=== PATIENT | male | born 1965 | race Caucasian/White ===

== ENCOUNTER 2024-10-05 08:39 | Inpatient (IN) | payer BC ==
--- OUTSIDE RECORDS SUMMARY | 2024-10-05 08:43 | XMS REPORT | Continuity of Care Document ---
Author Name Unknown Address [address] [facility] [address] [place] [address] Organization [facility] [place] Address [address] [facility] [address] [place] [address] Care Team Providers Care Grinder Tender Name Role Phone Pcp, Patient Does Not Have A Primary Care Physic meli DEWAYNE Attending Clinician Unavailable Katey Mujica Attending Clinician [phone] KATEY KHALIL Attending Clinician Unavailable Doctor Unassigned, [place] Attending Clinician U navailable Provider, [facility] Attending Clinician Un available Raissa Villa Attending Clinician [phone] RAISSA BESS Attending Clinician Unavail able DEWAYNE Admitting Clinician Unavailable Payers Payer Name Policy Type Policy Number Effective Date Expirati on Date Source [place] [id number] 2006 00:00:00 Problems Condition Name Condition Details Condition Category Status Onset Date Resolution Date Last Treatment Date Treating Clinician Comments Source Acute sinusitis Acute Sinusitis Problem Active 2023-03 00:00: 00 [facility] Allergic rhinitis Allergic Rhinitis Problem Active 2023-03 00:00: 00 [facility] Tobacco user Tobacco User Problem Active 10-10 00:00: 00 [facility] Ulcer Ulcer Problem Active 10-10 00:00: 00 [facility] No known active problems No known active problems Disease [facility] Allergies, Adverse Reactions, Alerts Allergy Name Allergy Type Status Severity Reaction(s) Onset Date Inactive Date Treating Clinician Comments Source NO KNOWN ALLERGIE S Drug Class Active [facility] Social History Social Habit Start Date Stop Date Quantity Comments Source History of tobacco use Chews Tobacco [facility] Exposure to SARS-CoV-2 (event) 2021-09-28 00:00:00 2021-10-08 09:11:00 Not sure [facility] Tobacco use and exposure 2020-05-06 00:00:00 2020-05-06 00:00:00 User of smokeless tobacco [facility] Sex Ass[birth year] At 1965 00:00:00 1965 00:00:00 [facility] Smoking Status Start Date Stop Date Source Unknown if ever smoked [facility] Heavy Tobacco Smoker [facility] Ex-smoker 2020-05-06 00:00:00 2020-05-06 00:00:00 U [facility] Medications Ordered Medication Name Filled Medication Name Start Date Stop Date Current Medication? Ordering Clinician Indication Dosage Frequency Signature (SIG) Comments Components Source dexAMETHaso ne (DECADRON) tablet 12 mg 06-11 15:00: 00 06-11 14:04 :00 No [id number] 12mg [facility] predniSONE 20 mg tablet 06-11 00:00: 00 Yes [id number] 2 tabs now and 2 tabs early each morning for total of 5 doses. [facility] hydrOXYzine 25 mg tablet 06-11 00:00: 00 Yes [id number] 1-2 tabs Every 3-6hr as needed for itch or rash, at least 3 times a day. [facility] famotidine 40 mg tablet 06-11 00:00: 00 09-10 04:59 :00 No [id number] 40mg Take 1 tablet by mouth daily for 90 days. [facility] triamcinolo ne acetonide (KENALOG) injection 80 mg 2- 03:15: 00 05-07 02:07 :00 No [id number] 80mg [facility] predniSONE 20 mg tablet 05-06 00:00: 00 05-12 05:59 :00 No [id number] 60mg Take 3 tablets by mouth daily for 5 days. [facility] amoxicillin 875 mg-potassiu m clavulanate 125 mg tablet Take 1 tablet every 12 hours by oral route for 7 days. amoxicillin 875 mg-potassiu m clavulanate 125 mg tablet Take 1 tablet every 12 hours by oral route for 7 days. No 1 Q12H amoxicilli n 875 mg-potassi um clavulanat e 125 mg tablet Take 1 tablet every 12 hours by oral route for 7 days. [facility] Flonase Allergy Relief 50 mcg/actuati on nasal spray,suspe nsion [place] 1 spray every day by intranasal route. Flonase Allergy Relief 50 mcg/actuati on nasal spray,suspe nsion [place] 1 spray every day by intranasal route. No 1spray( s) Q1D Flonase Allergy Relief 50 mcg/actuat ion nasal spray,susp ension [place] 1 spray every day by intranasal route. [facility] Vital Signs Vital Name Observation Time Observation Value Comments S ource BP Systolic 2024-03-06 00:00:00 138 mm[Hg] [facility] BP Diastolic 2024-03-06 00:00:00 105 mm[Hg] [facility] Body Weight 2024-03-06 00:00:00 3762 [oz_av] [facility] Height 2023-01-18 00:00:00 68.5 [in_i] [facility] Body Weight 2023-01-18 00:00:00 3459.2 [oz_av] [facility] BP Diastolic 2023-01-18 00:00:00 94 mm[Hg] [facility] BP Systolic 2023-01-18 00:00:00 135 mm[Hg] [facility] BMI (Body Mass Index) 2023-01-18 00:00:00 32.4 kg/m2 [facility] Systolic blood pressure 2021-10-08 14:13:00 149 mm[Hg] [facility] Diastolic blood pressure 2021-10-08 14:13:00 91 mm[Hg] [facility] Heart rate 2021-10-08 14:13:00 78 /min [facility] Body temperature 2021-10-08 14:13:00 36.72 Carla [facility] Respiratory rate 2021-10-08 14:13:00 14 /min [facility] Body height 2021-10-08 14:13:00 172.7 cm [facility] Body weight 2021-10-08 14:13:00 100.336 kg [facility] BMI 2021-10-08 14:13:00 33.63 kg/m2 [facility] Oxygen saturation in Arterial blood by Pulse oximetry 2021-10-08 14:13:00 98 /min [facility] Systolic blood pressure 2020-06-11 13:12:00 129 mm[Hg] [facility] Diastolic blood pressure 2020-06-11 13:12:00 86 mm[Hg] [facility] Heart rate 2020-06-11 13:12:00 64 /min [facility] Body temperature 2020-06-11 13:12:00 36.78 Carla [facility] Respiratory rate 2020-06-11 13:12:00 18 /min [facility] Body height 2020-06-11 13:12:00 172.7 [facility] weight 2020-06-11 13:12:00 79.379 kg [facility] BMI 2020-06-11 13:12:00 26.61 kg/m2 [facility] Oxygen saturation in Arterial blood by Pulse oximetry 2020-06-11 13:12:00 99 /min [facility] Body temperature 2020-05-07 01:47:00 37.17 Carla [facility] Respiratory rate 2020-05-07 01:47:00 18 /min [facility] Body height 2020-05-07 01:47:00 172.7 cm [facility] Body weight 2020-05-07 01:47:00 86.183 kg [facility] BMI 2020-05-07 01:47:00 28.89 kg/m2 [facility] Oxygen saturation in Arterial blood by Pulse oximetry 2020-05-07 01:47:00 98 /min [facility] Systolic blood pressure 2020-05-07 01:47:00 125 mm[Hg] [facility] Diastolic blood pressure 2020-05-07 01:47:00 75 mm[Hg] [facility] Heart rate 2020-05-07 01:47:00 70 /min [facility] Procedures Procedure Date / Time Performed Performing Clinicia n Source ASSIGNMENT OF BENEFITS 2021-10-08 14:02:19 Docto r Unassigned, [place] Knee Surgery 2015-03-11 00:00:00 [facility] Knee Surgery 2011-03-11 00:00:00 [facility] Encounters Start Date/Time End Date/Time Encounter Type Admission Type Attending Clinicians Care Facility Care Department Encounter ID Source 2024-03-06 00:00:00 2024-03-06 00:00:00 Betsy Pascal APRN-FORESTRY FACULTY MEMBER-B C: [address] [place] [address] , Ph. [facility] [id number] [address] [facility] 2023-01-18 00:00:00 2023-01-18 00:00:00 Brittnee Ram APRN, MSN, FORESTRY FACULTY MEMBER-: [address], [address], [place] [address] , Ph. [facility] [id number] [facility] 2021-10-08 09:00:00 2021-10-08 09:20:00 Urgent Care [facility] [id number] [facility] 2021-10-08 09:00:00 2021-10-08 09:00:00 Outpatient R REMI KATEY [facility] [id number] [facility] 2021-10-08 00:00:00 2021-10-08 00:00:00 Orders Only Doctor Unassigned, [facility] .114 [id number] [facility] 2020-06-11 08:07:58 2020-06-11 09:06:23 [facility] .114 [id number] [facility] 2020-06-11 08:00:00 2020-06-11 08:00:00 Outpatient R REMI KATEY [facility] [id number] [facility] 2020-05-06 19:43:40 2020-05-06 20:03:40 Urgent Care Provider, [facility] .114 [id number] [facility] 2020-05-06 19:40:00 2020-05-06 19:40:00 Outpatient R BESS [facility] [id number] [facility] 2020-05-06 00:00:00 2020-05-06 00:00:00 Letter (Out) Doctor Unassigned, [facility] 1.114 [id number] [facility]
[2024-10-05 09:39] LABS: Absolute Lymphocytes (CBC) 2.0 K/uL (0.7-4.9); Hematocrit 41.2 % (39.6-49.0); Hemoglobin 13.9 g/dL (13.6-17.9); MCH 29.7 pg (27.0-35.0); MCHC 33.7 g/dL (32.0-36.0); MCV 88.2 fL (80-100); MPV 8.4 fL (7.6-11.3); Nucleated RBC Absolute Count 0.0 (0-0); Nucleated Red Blood Cells % 0.0 % (0-0); RBC Red Blood Cell Count 4.67 M/uL (4.33-5.43); White Blood Count 15.70 thou/uL (4.3-10.9)
[2024-10-05 09:48] LABS: Sqamous Epithelial None Seen /HPF (None Seen); Urine Culture Reflex Order NOT NEEDED; Urine Microscopic Reflex YN ORDER UMIC
[2024-10-05 10:00] LABS: ALT/SGPT 26.0 U/L (16-61); AST/SGOT 14.0 U/L (15-37); Albumin 3.4 g/dL (3.4-5.0); Albumin/Globulin Ratio 0.8 (1.1-1.8); Alkaline Phosphatase 92.0 U/L (45-117); Anion Gap 8.6 mEq/L (5.0-15.0); BUN Blood Urea Nitrogen 10.0 mg/dL (7-18); Globulin 4.5 g/dL (2.3-3.5); Glucose Level 97.0 mg/dL (74-106); Lipase 23.0 U/L (13-75); Potassium 3.6 mEq/L (3.5-5.1)
[2024-10-05] MEDS ORDERED: KETOROLAC 30 MG/ML INJ ONE (10:33)
[2024-10-05] MEDS ORDERED: NA CHLORIDE 0.9% 1,000 ML ONE (10:33)
--- NOTE | 2024-10-05 11:04 | RAD REPORT ---
EXAMINATION: CT Abdomen Pelvis W Contrast CLINICAL INDICATION: Male, 59 years old. LLQ Pain;Abd pain TECHNIQUE: CT abdomen and pelvis was performed, after the administration of IV contrast, as [facility] protocol. Axial, sagittal and coronal reconstructions were obtained. One or more of the following dose reduction techniques were used: Automated exposure control, adjustment of the mA and k V according to patient size, and iterative reconstruction. Unless otherwise specified, incidental findings do not require dedicated imaging follow-up. COMPARISON: No prior exam. FINDINGS: LOWER CHEST: The visualized lung bases are clear. LIVER: Normal in size and contour. No focal lesion. BILIARY SYSTEM: No suspicious abnormalities. SPLEEN: Normal size. No focal lesion. PANCREAS: No mass, ductal dilation, or atilio-pancreatic fluid. ADRENALS: Normal; no mass. KIDNEYS: Normal size and contour. No hydronephrosis. 1 cm exophytic left upper pole simple appearing cyst. URINARY BLADDER: Suboptimally distended limiting evaluation. GASTROINTESTINAL TRACT: Pronounced inflammatory changes surrounding the superiorly directed proximal sigmoid diverticulum. Few locules of free air tracking superiorly. Trace fluid along the left paracolic gutter and pelvis. No bowel obstruction or abscess. Fatty infiltration throughout the prox imal gastric wall from the level of the fundus to the antrum, suggesting sequelae of chronic or repeated inflammatory changes. APPENDIX: Appendix not visualized, but no inflammatory changes in region of appendix. LYMPH NODES: No lymphadenopathy. MUSCULOSKELETAL: No acute or suspicious osseous abnormality. ADDITIONAL FINDINGS: None. IMPRESSION: Findings perforated proximal sigmoid diverticulitis with small volume of free air tracking superiorly . Trace fluid along the left paracolic gutter and pelvis. Other incidental findings as above. THIS REPORT CONTAINS FINDINGS THAT MAY BE CRITICAL TO PATIENT CARE. The findings were verbally commun icated via telephone to Cruzito Rascon on 10/05/2024 10:59 AM.
--- NOTE | 2024-10-05 11:09 | EDPHYS ---
Physician Documentation [facility] Name: Davis Cramer Age: 59 yrs Sex: Male : 1965 Arrival Date: 10/05/2024 Time: 08:39 Bed 20 Private MD: ED Physician Cruzito Rascon HPI: 10/05 09:15 This 59 yrs old Male presents to ER via Ambulatory with complaints of Abdominal Pain. sp3 09:15 59-year-old male with history of hypertension presents to the ED with chief complaint sp3 left lower quadrant abdominal pain for the last [address] Rodriguez has had multiple polyps removed. He states he is also been recently more constipated than normal. He denies any other symptoms including vomiting, diarrhea, nausea, epigastric pain, back pain, flank pain, dysuria, rash, groin pain, chest pain, shortness of breath, fever, known sick contacts, travel history, or any other signs or symptoms on ROS at this time.. Historical: - Allergies: 09:04 No Known Allergies; ss - PMHx: 09:04 Hypertensive disorder; ss - PSHx: 09:04 bilateral knee repair; ss - Immunization history:: Adult Immunizations unknown. - Infectious Disease History:: Denies. - Social history:: Smoking status: Patient denies any tobacco usage or history of. ROS: 09:20 Constitutional: Negative for fever, chills, and weight loss, Eyes: Negative for injury, sp3 pain, redness, and discharge, Neck: Negative for injury, pain, and swelling, Cardiovascular: Negative for chest pain, palpitations, and edema, Respiratory: Negative for shortness of breath, cough, wheezing, and pleuritic chest pain, Back: Negative for injury and pain, MS/Extremity: Negative for injury and deformity, Skin: Negative for injury, rash, and discoloration, Neuro: Negative for headache, weakness, numbness, tingling, and seizure, Psych: Negative for depression, anxiety, suicide ideation, homicidal ideation, and hallucinations, Allergy/Immunology: Negative for hives, rash, and allergies, Endocrine: Negative for neck swelling, polydipsia, polyuria, polyphagia, and marked weight changes, 09:20 All other systems are negative, Exam: 09:21 Constitutional: This is a well developed, well nourished patient who is awake, alert, sp3 and in no acute distress. Head/Face: Normocephalic, atraumatic. Neck: Trachea midline, no thyromegaly or masses palpated, and no cervical lymphadenopathy. Supple, full range of motion without nuchal rigidity, or vertebral point tenderness. No Meningismus. Chest/axilla: Normal chest wall appearance and motion. Nontender with no deformity. No lesions are appreciated. Cardiovascular: Regular rate and rhythm with a normal S1 and S2. No gallops, murmurs, or rubs. Normal PMI, no JVD. No pulse deficits. Respiratory: Lungs have equal breath sounds bilaterally, clear to auscultation and percussion. No rales, rhonchi or wheezes noted. No increased work of breathing, no retractions or nasal flaring. Back: No spinal tenderness. No costovertebral tenderness. Full range of motion. Skin: Warm, dry with normal turgor. Normal color with no rashes, no lesions, and no evidence of cellulitis. MS/ Extremity: Pulses equal, no cyanosis. Neurovascular intact. Full, normal range of motion. Neuro: Awake and alert, GCS 15, oriented to person, place, time, and situation. Cranial nerves II-XII grossly intact. Motor strength 5/5 in all extremities. Sensory grossly intact. Cerebellar exam normal. Normal gait. Psych: Awake, alert, with orientation to person, place and time. Behavior, mood, and affect are within normal limits. 09:21 Abdomen/GI: Left lower quadrant abdominal pain to palpation without peritoneal signs, rebound or guarding., Vital Signs: 09:02 BP 153 / 108; Pulse 87; Resp 16; Temp 99(O); Pulse Ox 99% on R/A; Weight 107.95 kg; ss Height 5 ft. 8 in. ; Pain 4/10; 10:42 BP 160 / 104; Pulse 89; Resp 18; Pulse Ox 98% on R/A; ph 11:45 BP 159 / 97; Pulse 84; Resp 19; Pulse Ox 98% on R/A; ph 12:48 BP 158 / 89; Pulse 81; Resp 18; Temp 98.7; Pulse Ox 99% ; ph 09:02 Body Mass Index 36.19 (107.95 kg, 172.72 cm) 09:02 Pain Scale: Adult ss MDM: 08:42 Medical Screening Exam initiated kb 09:21 Data reviewed: vital signs, nurses notes, lab test result(s), radiologic studies. ED sp3 course: 59-year-old male with left lower quadrant abdominal pain. Differential diagnosis includes diverticulitis, constipation, other colitis, UTI/pyelonephritis spectrum, ureterolithiasis/kidney stone spectrum, functional abdominal pain, musculoskeletal pain, among others. Workup will include CT scan of the abdomen pelvis with IV contrast, general labs and supportive care. Patient declined any pain medications at this time. Final disposition pending workup and patient course.. 11:07 ED course: CT demonstrates diverticulitis with perforation. 16,000 WBC count. Zosyn sp3 started. I discussed the case with Dr. Raya who will be seeing in consultation patient will be admitted to the hospitalist.. 10/05 09:04 Order name: CBC with Diff; Complete Time: 10:03 sp3 10/05 09:04 Order name: CMP; Complete Time: 10:03 sp3 10/05 09:04 Order name: Lipase; Complete Time: 10:03 sp3 10/05 09:04 Order name: UA Rfx Greg Cult if indicated; Complete Time: 10:03 sp3 10/05 12:25 Order name: Magnesium [facility] 10/05 12:25 Order name: Phosphorus [facility] 10/05 12:25 Order name: Protime (+INR) [facility] 10/05 12:25 Order name: Troponin High Sensitivity [facility] 10/05 12:25 Order name: Basic Metabolic Panel [facility] 10/05 12:25 Order name: Basic Metabolic Panel [facility] 10/05 12:25 Order name: CBC with Automated Diff [facility] 10/05 12:25 Order name: CBC with Automated Diff [facility] 10/05 12:25 Order name: Lipid Profile [facility] 10/05 12:25 Order name: Lipid Profile [facility] 10/05 12:27 Order name: Hemoglobin A1c [facility] 10/05 09:04 Order name: CT Abd/Pelvis - IV Contrast Only; Complete Time: 11:06 sp3 10/05 12:23 Order name: CONS Physician Consult [facility] 10/05 09:04 Order name: IV Saline Lock; Complete Time: 09:37 sp3 10/05 09:04 Order name: Labs collected and sent; Complete Time: 09:37 sp3 Administered Medications: 10:00 Drug: NS 0.9% IV 1000 ml IV at 1 bolus Per protocol; to be given as a bolus over 60 ph minutes Route: IV; Rate: 1 bolus; Site: left antecubital; 11:23 Follow up: Response: No adverse reaction; IV Status: Completed infusion; IV Intake: ph 1000ml 10:40 Drug: Ketorolac IVP 30 mg IVP once Route: IVP; Site: left antecubital; ph 11:22 Follow up: Response: No adverse reaction ph 11:21 Drug: Piperacillin-Tazobactam IVPB 3.375 grams IVPB once over 60 mins; (mix in NS 100 ph mL) Route: IVPB; Infused Over: 60 mins; Site: left antecubital; 11:50 Follow up: Response: No adverse reaction; IV Status: Completed infusion ph Disposition Summary: 10/05/24 11:08 Hospitalization Ordered Notes: Hospitalization Status: Inpatient Admission sp3 Provider: Christopher Pittman sp3 [facility]: [facility] ([facility]patient[facility] sp3 Condition: Stable sp3 Problem: new sp3 Symptoms: have worsened sp3 Bed/Room Type: Standard sp3 Room Assignment: 424(10/05/24 12:43) bc6 Diagnosis - Diverticulitis with perforation, abdominal pain sp3 Forms: - Medication Reconciliation Form sp3 - SBAR form sp3 - Leadership Thank You Letter sp3 Signatures: Dispatcher [employer] Marcy Carrasco FNP-C FNP-Liane Cortes RN RN Priscilla Rodriguez RN RN Cruzito Rascon MD MD sp3 Raquel Davis bc6 Corrections: (The following items were deleted from the chart) 12:43 11:08 sp3 bc6
--- NOTE | 2024-10-05 11:09 | ER ---
Nurse's Notes [facility] Name: Davis Cramer Age: 59 yrs Sex: Male : 1965 Arrival Date: 10/05/2024 Time: 08:39 Bed 20 Private MD: Diagnosis: Diverticulitis with perforation, abdominal pain Presentation: 10/05 09:02 Chief complaint: Patient states: L lower abd pain that worsens throughout the day x 4 ss days. Pt also reports urinary frequency. Coronavirus screen: Client denies travel out of the [place] in the last 14 days. Ebola Screen: Patient denies exposure to infectious person. Patient denies travel to an Ebola-affected area in the 21 days before illness onset. Initial Sepsis Screen: Does the patient meet any 2 criteria? No. Patient's initial sepsis screen is negative. Does the patient have a suspected source of infection? No. Patient's initial sepsis screen is negative. Risk Assessment: Do you want to hurt yourself or someone else? Patient reports no desire to harm self or others. 09:02 Method Of Arrival: Ambulatory ss 09:02 Acuity: SOLOMON 3 09:02 Onset of symptoms was October 01, 2024. ss Historical: - Allergies: 09:04 No Known Allergies; ss - PMHx: 09:04 Hypertensive disorder; ss - PSHx: 09:04 bilateral knee repair; ss - Immunization history:: Adult Immunizations unknown. - Infectious Disease History:: Denies. - Social history:: Smoking status: Patient denies any tobacco usage or history of. Screenin:36 [facility] ED Fall Risk Assessment (Adult) History of falling in the last 3 months, ph including since admission No falls in past 3 months (0 pts) Confusion or Disorientation No (0 pts) Intoxicated or Sedated No (0 pts) Impaired Gait No (0 pts) Mobility Assist Device Used No (0 pt) Altered Elimination No (0 pt) Score/Fall Risk Level 0 - 2 = Low Risk Oriented to surroundings, Maintained a safe environment, Hourly rounding (assess needs \T\ fall precautionary measures) done. Abuse screen: Denies threats or abuse. Denies injuries from another. Nutritional screening: No deficits noted. Tuberculosis screening: No symptoms or risk factors identified. Assessment: 09:35 General: Appears in no apparent distress. comfortable, well groomed, Behavior is calm, ph cooperative, appropriate for age. Pain: Complains of pain in left upper quadrant, right lower quadrant and left lower quadrant. Neuro: Level of Consciousness is awake, alert, obeys commands, Oriented to person, place, time, situation. Cardiovascular: Capillary refill < 3 seconds in bilateral fingers Patient's skin is warm and dry. Respiratory: Airway is patent Respiratory effort is even, unlabored. GI: Abdomen is round Bowel sounds present X 4 quads. Abd is soft X 4 quads. Derm: Skin is pink, warm \T\ dry. Vital Signs: 09:02 BP 153 / 108; Pulse 87; Resp 16; Temp 99(O); Pulse Ox 99% on R/A; Weight 107.95 kg; ss Height 5 ft. 8 in. ; Pain 4/10; 10:42 BP 160 / 104; Pulse 89; Resp 18; Pulse Ox 98% on R/A; ph 11:45 BP 159 / 97; Pulse 84; Resp 19; Pulse Ox 98% on R/A; ph 12:48 BP 158 / 89; Pulse 81; Resp 18; Temp 98.7; Pulse Ox 99% ; ph 09:02 Body Mass Index 36.19 (107.95 kg, 172.72 cm) ss 09:02 Pain Scale: Adult ss ED Course: 08:41 Patient arrived in ED. mr 08:42 RomeMarcy, PHOEBE[facility]it[facility] kb 08:42 Cruzito Rascon MD is Attending Physician. kb 08:53 Priscilla Rodriguez, RN is Primary Nurse. ph 09:03 Triage completed. ss 09:04 Arm band placed on right wrist. ss 09:35 Initial lab(s) drawn, by ia, sent to lab. Urine collected: clean catch specimen, clear. ph Inserted saline lock: 22 gauge in right antecubital area, using aseptic technique. Blood collected. Flushed with 10 mL NS. 09:36 Patient has correct armband on for positive identification. Bed in low position. Call ph light in reach. Side rails up X 1. Pulse ox on. NIBP on. Door closed. Noise minimized. 09:36 Provided Education on: POC and est time for test results. ph 09:37 CBC with Diff Sent. ph 09:37 CMP Sent. ph 09:37 Lipase Sent. ph 10:25 CT Abd/Pelvis - IV Contrast Only In Process Unspecified. EDMS 11:07 Christopher Pittman MD is Hospitalizing Provider. sp3 13:23 No provider procedures requiring assistance completed. Patient admitted, IV remains in ph place. Administered Medications: 10:00 Drug: NS 0.9% IV 1000 ml IV at 1 bolus Per protocol; to be given as a bolus over 60 ph minutes Route: IV; Rate: 1 bolus; Site: left antecubital; 11:23 Follow up: Response: No adverse reaction; IV Status: Completed infusion; IV Intake: ph 1000ml 10:40 Drug: Ketorolac IVP 30 mg IVP once Route: IVP; Site: left antecubital; ph 11:22 Follow up: Response: No adverse reaction ph 11:21 Drug: Piperacillin-Tazobactam IVPB 3.375 grams IVPB once over 60 mins; (mix in NS 100 ph mL) Route: IVPB; Infused Over: 60 mins; Site: left antecubital; 11:50 Follow up: Response: No adverse reaction; IV Status: Completed infusion ph Medication: 09:36 VIS not applicable for this client. ph Intake: 11:23 IV: 1000ml; Total: 1000ml. ph Outcome: 11:08 Decision to Hospitalize by Provider. sp3 13:23 Admitted to Med/surg accompanied by tech, via wheelchair, with chart, ph 13:23 Condition: stable 13:24 Patient left the ED. ph Signatures: Dispatcher [employer] EDOK Marcy Peter, FINANCIAL UNDERWRITER-C FINANCIAL UNDERWRITER-Ckb Karma Baker, Reg Reg mr Liane Recinos RN RN Priscilla Rodriguez RN RN Cruzito Rascon MD MD sp3 Corrections: (The following items were deleted from the chart) 10:42 10:41 NS 0.9% IV 1000 ml IV at 1 bolus in left antecubital ph ph
[2024-10-05] MEDS ORDERED: PIPERACIL/TAZO 3.375 GM VIAL IV ONE (11:11)
[2024-10-05] MEDS ORDERED: NA CHLORIDE 0.9% 100 ML ONE (11:11)
[2024-10-05] MEDS ORDERED: ACETAMINOPHEN 650MG/RECT SUPP PR PRN (12:17)
[2024-10-05] MEDS ORDERED: ONDANSETRON 4 MG/2 ML VIAL IV PRN (12:21)
--- NOTE | 2024-10-05 12:27 | P.HP ---
Certification for Inpatient Patient admitted to: Inpatient With expected LOS: >2 Midnights Patient will require the following post-hospital care: None Practitioner: I am a practitioner with admitting privileges, knowledge of patient current condition, hospital course, and medical plan of care. Services: Services provided to patient in accordance with Admission requirements found in Title 42 Section 412.3 of the Code of Federal Regulations <Bismark Garcia - Last Filed: 10/05/24 17:27> Patient History Date of Service: 10/05/24 Reason for admission: Abdominal pain. History of Present Illness: Patient is a 59-year-old male with a past medical history significant for hypertension, tobacco use, HLD who presents with complaint of abdominal pain located in the left lower quadrant that has been ongoing for the past 3 days. Patient rated pain as 4/10 in severity and described pain as sharp in quality. Patient reported associated signs and symptoms of fever and chills. Patient denies any other signs and symptoms. Symptoms are aggravated or relieved by nothing. Patient decided to present to the hospital due to worsening symptoms. - Past Medical/Surgical History Diabetic: No -: high choesterol many years ago. not taking anythng -: recurring sinsus problems -: HTN -: Left knee artho 2011 - Family History Family History: Reviewed- Non-Contributory - Social History Counseled patient to stop smoking for: more than 10 minutes Smoking therapy provided: No Alcohol use: Yes CD- Drugs: No Caffeine use: Yes <JaycoboswaldFernando travisalejandra Travis - Last Filed: 10/05/24 17:27> Date of Service: 10/05/24 <Christopher Pittman - Last Filed: 10/05/24 22:28> Allergies No Known Allergies Allergy (Unverified 11/25/13 13:45) Home Medications: NK [No Home Meds] 11/25/13 Review of Systems General: Fever, Chills Eyes: Unremarkable ENT: Unremarkable Respiratory: Unremarkable Cardiovascular: Unremarkable Gastrointestinal: Abdominal Pain Genitourinary: Unremarkable Musculoskeletal: Unremarkable Integumentary: Unremarkable Neurological: Unremarkable Lymphatics: Unremarkable <CharitypalmaFernandoalejandra Travis - Last Filed: 10/05/24 17:27> Physical Examination - Physical Exam General: Alert, In no apparent distress, Oriented x3, Cooperative HEENT: Atraumatic, PERRLA, Mucous membr. moist/pink, EOMI, Sclerae nonicteric Neck: Supple, 2+ carotid pulse no bruit, No LAD, Without JVD or thyroid abnormality Respiratory: Clear to auscultation bilaterally, Normal air movement Cardiovascular: No edema, Regular rate/rhythm, Normal S1 S2 Capillary refill: <2 Seconds Gastrointestinal: Normal bowel sounds, Tenderness Musculoskeletal: No clubbing, No swelling, No contractures, No tenderness Integumentary: No rashes, No breakdown, No erythema, No warmth Neurological: Normal gait, Normal speech, Normal strength at 5/5 x4 extr, Normal tone, Normal affect Lymphatics: No axilla or inguinal lymphadenopathy - Studies Laboratory Data (last 24 hrs) 10/05/24 10/05/24 09:30 09:30 WBC 15.70 H Hgb 13.9 Hct 41.2 Plt Count 309 Sodium 135 L Potassium 3.6 BUN 10 Creatinine 1.00 Glucose 97 Total Bilirubin 0.9 AST 14 L ALT 26 Alkaline Phosphatase 92 Lipase 23 <Bismark Garcia - Last Filed: 10/05/24 17:27> - Studies Laboratory Data (last 24 hrs) 10/05/24 10/05/24 09:30 09:30 WBC 15.70 H Hgb 13.9 Hct 41.2 Plt Count 309 Sodium 135 L Potassium 3.6 BUN 10 Creatinine 1.00 Glucose 97 Total Bilirubin 0.9 AST 14 L ALT 26 Alkaline Phosphatase 92 Lipase 23 <Christopher Pittman - Last Filed: 10/05/24 22:28> Assessment and Plan - Plan Diverticulitis. --CT abdomen indicates findings of perforated proximal sigmoid diverticulitis with small volume of free air tracking superiorly and Trace fluid along the left paracolic gutter and pelvis. --Patient placed on antibiotics. --Patient placed on n.p.o. and IV hydration. --Surgeon consulted. Recommendations appreciated --Surgery indicated no surgery at this time. Leukocytosis --Blood cultures pending. --Continue antibiotics. Acute pain. --Continue current pain medication regimen. Hypertension --Poorly controlled. --Continue home medication --Hydralazine as needed for SBP greater than 160 mmHg. Tobacco use --Patient uses snuff -- Patient counseled on tobacco cessation. CKD 2. --Stable. --Will continue to monitor renal functions. Hyperlipidemia. --Not on home medication. --Further management per patient's PCP outpatient. DVT prophylaxis with Lovenox subQ Discharge Plan: Home Plan to discharge in: 48 Hours - Advance Directives Does patient have a Living Will: No Does patient have a Durable POA for Healthcare: No - Code Status/Comfort Care Code Status Assessed: Yes Physician Review: Patient Assessed, Agree with Above Assessment and Plan Critical Care: No <Bismark Garcia - Last Filed: 10/05/24 17:27> Physician Review: Patient Assessed, Agree with Above Assessment and Plan <Christopher Pittman - Last Filed: 10/05/24 22:28>
[2024-10-05] MEDS: NA CHLORIDE 0.9% 1,000 ML IV SCH (14:42)
[2024-10-05] MEDS: METRONIDAZOLE 500mg IVPB 500 MG/100 ML BAG IV SCH (16:30)
[2024-10-05] MEDS: ENOXAPARIN 40 MG/0.4 ML SQ SCH (18:00)
[2024-10-05] MEDS: MORPHINE 4 MG/ML SYR IV PRN (19:18)
[2024-10-05] MEDS: CIPROFLOXACIN 400mg IV 400 MG/200 ML BAG IV SCH (19:55)
--- NOTE | 2024-10-05 20:16 | CON ---
Date of Consultation: 10/05/2024 Reason For Consultation: Abdominal pain. History Of Present Illness: The patient is a 59-year-old gentleman who comes in with decreasing left lower and suprapubic abdominal pain associated with nausea for the last 4 days. He denies any nause a, vomiting, diarrhea, constipation, blood per rectum, dysuria or hematuria. The patient denies any sore throat, runny nose, cough, headaches, dizziness, chest pain, fever or chills. The patient has h ad similar episodes in the past. The patient has had multiple colonoscopies done in the past which h e had polyps, but no history of cancer. Review of Systems: Otherwise unremarkable. Past Medical History: Hypertension. Past Surgical History: Bilateral knee surgeries. Allergies: NO ALLERGIES. Social History: The patient chews tobacco. Does not smoke and drinks very occasionally. Family History: Noncontributory. Physical Examination: Vital Signs: Stable. He is afebrile. Blood pressure is slightly on the high side. General: He is awake, alert, and oriented x3. Head and Neck: Throat clear. Neck is supple. No JVD. No neck masses. Chest: Clear. Heart: S1, S2. Abdomen: Soft, nondistended. Positive bowel sounds. Tenderness with rebound minimal in the left lo wer and suprapubic region. No rigidity. No guarding. The remainder of the abdomen is benign. Extremities: Adequately perfused, nontender. Neuro: Nonfocal. Laboratory Data: Significant for white count of 15.7 with a left shift. INR is pending. Chemistry reviewed, essentially unremarkable. His CT of the abdomen and pelvis reviewed with the radiologist lucas nd it shows perforated proximal sigmoid diverticulitis with small volume of free air slightly superio rly, but no trace fluid along the left pericolic gutter pelvis. No abscess and no distant free air n oted. Assessment: A 59-year-old gentleman with acute perforated sigmoid diverticulitis appears to be conta ined on the left lower quadrant. Recommendations: At this time would be n.p.o., IV fluid, IV antibiotics, pain management. Should th e patient symptoms worsen and condition worsened then he may need an intervention on this admission. However, should he improve with antibiotics and n.p.o. status, we can slowly advance his diet and di scharge the patient on oral antibiotics and then follow up with his colorectal/GI doctor for colonosc opy in 4-6 weeks followed by evaluation for possible segmental colon resection by colorectal speciali st. Plan of care was discussed in detail with the patient. TRACY/CONTRERAS Voice ID: [id number] Report ID: [id number]
[2024-10-05] MEDS: DIPHENHYDRAMINE 50 MG/ML VIAL IV ONE (21:06)
[2024-10-05] MEDS: HYDRALAZINE HCL 20 MG/ML VIAL IV PRN (21:06)
[2024-10-06] MEDS: IBUPROFEN 600 MG TAB PO ONE (04:27)
[2024-10-06 06:31] LABS: PT Prothrombin Time 15.5 SECONDS (10-13.0); Protime INR 1.38
[2024-10-06 06:34] LABS: Absolute Lymphocytes (CBC) 1.0 K/uL (0.7-4.9); Hematocrit 39.5 % (39.6-49.0); Hemoglobin 13.5 g/dL (13.6-17.9); MCH 29.9 pg (27.0-35.0); MCHC 34.1 g/dL (32.0-36.0); MCV 87.6 fL (80-100); MPV 8.1 fL (7.6-11.3); Nucleated RBC Absolute Count 0.1 (0-0); Nucleated Red Blood Cells % 0.9 % (0-0); RBC Red Blood Cell Count 4.51 M/uL (4.33-5.43); White Blood Count 12.00 thou/uL (4.3-10.9)
[2024-10-06 06:37] LABS: Magnesium 2.1 mg/dL (1.6-2.4); Troponin High Sensitivity 4.2 pg/mL (<58.9)
[2024-10-06 06:43] LABS: Anion Gap 6.7 mEq/L (5.0-15.0); BUN Blood Urea Nitrogen 11.0 mg/dL (7-18); Glucose Level 109.0 mg/dL (74-106); HDL Cholesterol 46.0 mg/dL (40-60); LDL Cholesterol, Calculated 123.0 mg/dL (<130); LDL Cholesterol,Calc NonReport 123.0; Potassium 3.7 mEq/L (3.5-5.1)
[2024-10-06 07:31] LABS: Blood Morphology Comment NOT SEEN (NOT SEEN); White Blood Cell Scan OK (OK)
[2024-10-06] MEDS: KCL 20 MEQ/100 mL IVPB 20 MEQ/100 ML BAG IV SCH (09:47)
--- NOTE | 2024-10-06 12:11 | PN ---
Date of Progress Note: 10/06/2024 Subjective: The patient is awake, alert, feels better. Pain is less. He is thirsty. His vitals ar e stable. Blood pressure is slightly high. He is afebrile. His laboratory data reviewed. His whit e count is down to 12,000, still has a left shift. Chemistry reviewed. His abdomen is tender, but t here is no rebound, rigidity, or guarding. It is better than yesterday. Assessment: Acute sigmoid diverticulitis with microperforation likely. Recommendations: We will get a dietary consult for diet modification. We will start the patient on sips of clear liquids. Continue IV antibiotics. Detailed discussion was had with the patient and wi fe regarding postdischarge plan as far as getting a colonoscopy and evaluation by colorectal surgeon in [place]. /MODL Voice ID: [id number] Report ID: [id number]
[2024-10-06 15:38] VITALS: BMI 35.7
[2024-10-06] MEDS: PIPER TAZO 3.375 GM in NA CHLORIDE 0.9% 100 ML IV SCH (16:45)
--- NOTE | 2024-10-06 16:48 | P.PN ---
Date of Service: 10/06/24 Subjective: Doing well. Blood pressure remains high. States he has had high blood pressure in the past but has never seen a doctor for it. Sitting in his chair drinking his coffee. No fevers or chills. Abdominal pain is 3 out of 10. No fevers overnight. He remains in high spirits Review of Systems General: Unremarkable Eyes: Unremarkable ENT: Unremarkable Respiratory: Unremarkable Cardiovascular: Unremarkable Gastrointestinal: Abdominal Pain Genitourinary: Unremarkable Musculoskeletal: Unremarkable Integumentary: Unremarkable Neurological: Unremarkable Lymphatics: Unremarkable Physical Examination - Physical Exam General: Alert, In no apparent distress, Oriented x3, Cooperative HEENT: Atraumatic, PERRLA, Mucous membr. moist/pink, EOMI, Sclerae nonicteric Neck: Supple, 2+ carotid pulse no bruit, No LAD, Without JVD or thyroid abnormality Respiratory: Clear to auscultation bilaterally, Normal air movement Cardiovascular: No edema, Regular rate/rhythm, Normal S1 S2 Capillary refill: <2 Seconds Gastrointestinal: Normal bowel sounds, Tenderness Musculoskeletal: No clubbing, No swelling, No contractures, No tenderness Integumentary: No rashes, No breakdown, No erythema, No warmth Neurological: Normal gait, Normal speech, Normal strength at 5/5 x4 extr, Normal tone, Normal affect Lymphatics: No axilla or inguinal lymphadenopathy - Studies Laboratory Data (last 24 hrs) 10/05/24 10/05/24 09:30 09:30 WBC 15.70 H Hgb 13.9 Hct 41.2 Plt Count 309 Sodium 135 L Potassium 3.6 BUN 10 Creatinine 1.00 Glucose 97 Total Bilirubin 0.9 AST 14 L ALT 26 Alkaline Phosphatase 92 Lipase 23 - Studies Laboratory Data (last 24 hrs) 10/05/24 10/05/24 09:30 09:30 WBC 15.70 H Hgb 13.9 Hct 41.2 Plt Count 309 Sodium 135 L Potassium 3.6 BUN 10 Creatinine 1.00 Glucose 97 Total Bilirubin 0.9 AST 14 L ALT 26 Alkaline Phosphatase 92 Lipase 23 Assessment and Plan - Plan Acute sigmoid diverticulitis with microperforation --WBC down to 12 --Continue Zosyn --Patient placed on n.p.o. and IV hydration. --Surgeon consulted. Recommendations appreciated Leukocytosis --Blood cultures pending. --Continue antibiotics. Acute pain. --Continue current pain medication regimen. Hypertension --Started on losartan --Hydralazine as needed for SBP greater than 160 mmHg. Tobacco use --Patient uses snuff -- Patient counseled on tobacco cessation. CKD 2. --Stable. --Will continue to monitor renal functions. Hyperlipidemia. --Not on home medication. --Further management per patient's PCP outpatient. DVT prophylaxis with Lovenox subQ Discharge Plan: Home Plan to discharge in: 48 Hours - Advance Directives Does patient have a Living Will: No Does patient have a Durable POA for Healthcare: No
[2024-10-06] MEDS: LOSARTAN POTASSIUM 50 MG TABLET PO SCH (17:19)
[2024-10-06] MEDS: IBUPROFEN 400 MG TAB PO ONE (20:13)
[2024-10-07 07:05] LABS: Absolute Lymphocytes (CBC) 1.6 K/uL (0.7-4.9); Hematocrit 41.0 % (39.6-49.0); Hemoglobin 13.8 g/dL (13.6-17.9); MCH 29.7 pg (27.0-35.0); MCHC 33.7 g/dL (32.0-36.0); MCV 88.1 fL (80-100); MPV 8.5 fL (7.6-11.3); Nucleated RBC Absolute Count 0.0 (0-0); Nucleated Red Blood Cells % 0.0 % (0-0); RBC Red Blood Cell Count 4.66 M/uL (4.33-5.43); White Blood Count 10.40 thou/uL (4.3-10.9)
[2024-10-07 08:00] LABS: Anion Gap 8.9 mEq/L (5.0-15.0); BUN Blood Urea Nitrogen 9.0 mg/dL (7-18); Glucose Level 97.0 mg/dL (74-106); Potassium 3.9 mEq/L (3.5-5.1)
--- NOTE | 2024-10-07 16:39 | P.PN ---
Date of Service: 10/07/24 Subjective: Tolerating his diet. Denies abdominal pain, fevers, chills. Anxious to go home. Review of Systems General: Unremarkable Eyes: Unremarkable ENT: Unremarkable Respiratory: Unremarkable Cardiovascular: Unremarkable Gastrointestinal: Abdominal Pain Genitourinary: Unremarkable Musculoskeletal: Unremarkable Integumentary: Unremarkable Neurological: Unremarkable Lymphatics: Unremarkable Physical Examination - Physical Exam General: Alert, In no apparent distress, Oriented x3, Cooperative HEENT: Atraumatic, PERRLA, Mucous membr. moist/pink, EOMI, Sclerae nonicteric Neck: Supple, 2+ carotid pulse no bruit, No LAD, Without JVD or thyroid abnormality Respiratory: Clear to auscultation bilaterally, Normal air movement Cardiovascular: No edema, Regular rate/rhythm, Normal S1 S2 Capillary refill: <2 Seconds Gastrointestinal: Normal bowel sounds, Tenderness Musculoskeletal: No clubbing, No swelling, No contractures, No tenderness Integumentary: No rashes, No breakdown, No erythema, No warmth Neurological: Normal gait, Normal speech, Normal strength at 5/5 x4 extr, Normal tone, Normal affect Lymphatics: No axilla or inguinal lymphadenopathy - Studies Laboratory Data (last 24 hrs) 10/05/24 10/05/24 09:30 09:30 WBC 15.70 H Hgb 13.9 Hct 41.2 Plt Count 309 Sodium 135 L Potassium 3.6 BUN 10 Creatinine 1.00 Glucose 97 Total Bilirubin 0.9 AST 14 L ALT 26 Alkaline Phosphatase 92 Lipase 23 - Studies Laboratory Data (last 24 hrs) 10/05/24 10/05/24 09:30 09:30 WBC 15.70 H Hgb 13.9 Hct 41.2 Plt Count 309 Sodium 135 L Potassium 3.6 BUN 10 Creatinine 1.00 Glucose 97 Total Bilirubin 0.9 AST 14 L ALT 26 Alkaline Phosphatase 92 Lipase 23 Assessment and Plan - Plan Acute sigmoid diverticulitis with microperforation Leukocytosis --Continue Zosyn --Patient placed on n.p.o. and IV hydration. --Surgeon consulted. Recommendations appreciated --Leukocytosis resolved --Continue IV antibiotics and hopefully transition to oral for discharge Acute pain. --Continue current pain medication regimen. Hypertensive urgency --Improved on losartan --Hydralazine as needed for SBP greater than 160 mmHg. Tobacco use --Patient uses snuff -- Patient counseled on tobacco cessation. CKD 2. --Stable. --Will continue to monitor renal functions. Hyperlipidemia. --Not on home medication. --Further management per patient's PCP outpatient. DVT prophylaxis with Lovenox subQ Discharge Plan: Home Plan to discharge in: 48 Hours - Advance Directives Does patient have a Living Will: No Does patient have a Durable POA for Healthcare: No
--- NOTE | 2024-10-07 16:52 | PN ---
Date of Progress Note: 10/07/2024 Subjective: The patient is awake, alert. No abdominal pain. His blood pressure has been a little h igh and the hospice team is trying to manage that. His laboratory data reviewed. White count is nor mal now and he still has a slight left shift. Objective: Vital Signs: His vitals are stable. He is afebrile. Abdomen: Soft, nondistended, very minimal tenderness. No rebound, rigidity, or guarding. Assessment: Acute sigmoid perforated diverticulitis. Recommendations: Advance diet to full liquids and GI soft in the a.m. The patient does well and blo od pressure is under control. The patient can be discharged home on oral antibiotics for 2 weeks fol lowed by GI evaluation for colonoscopy and colorectal referral. /IWONAL Voice ID: [id number] Report ID: [id number]
[2024-10-08 09:01] LABS: Absolute Lymphocytes (CBC) 1.7 K/uL (0.7-4.9); Hematocrit 39.8 % (39.6-49.0); Hemoglobin 13.4 g/dL (13.6-17.9); MCH 29.6 pg (27.0-35.0); MCHC 33.6 g/dL (32.0-36.0); MCV 88.1 fL (80-100); MPV 8.6 fL (7.6-11.3); Nucleated RBC Absolute Count 0.0 (0-0); Nucleated Red Blood Cells % 0.0 % (0-0); RBC Red Blood Cell Count 4.52 M/uL (4.33-5.43); White Blood Count 11.80 thou/uL (4.3-10.9)
[2024-10-08 09:08] LABS: ALT/SGPT 28.0 U/L (16-61); AST/SGOT 17.0 U/L (15-37); Albumin 3.2 g/dL (3.4-5.0); Albumin/Globulin Ratio 0.8 (1.1-1.8); Alkaline Phosphatase 77.0 U/L (45-117); Anion Gap 8.7 mEq/L (5.0-15.0); BUN Blood Urea Nitrogen 10.0 mg/dL (7-18); Globulin 3.9 g/dL (2.3-3.5); Glucose Level 83.0 mg/dL (74-106); Potassium 3.7 mEq/L (3.5-5.1)
--- NOTE | 2024-10-08 10:18 | PN ---
Date of Progress Note: 10/08/2024 Subjective: The patient is awake, alert, tolerating diet. No pain. No nausea, no vomiting, no feve r, no chills. Objective: Vital Signs: Stable. He is afebrile. Abdomen: Soft, nondistended, nontender. Positive bowel sounds. Laboratory Data: Shows slight decrease in his white count to 11.8 with slight left shift. Assessment: Acute sigmoid diverticulitis with perforation. Recommendation: As the white count went up a little bit, I think it would be prudent for us to repea t the CT of the abdomen and pelvis and make sure that the intraperitoneal disease has not progressed prior to sending the patient home. If that CT is negative, then the patient can be discharged home gloria Soto and Jenelle with followup with GI and Colorectal Surgery. Plan of care discussed with the [facility] briannat Team. /MODL Voice ID: [id number] Report ID: [id number]
--- NOTE | 2024-10-08 11:39 | RAD REPORT ---
EXAMINATION: CT ABDOMEN AND PELVIS WITH CONTRAST CLINICAL INDICATION: Abdominal pain TECHNIQUE: CT abdomen and pelvis was performed, after the administration of 100 cc Isovue-300.. Sagit sapna and coronal reconstructions were obtained. One or more of the following dose reduction techniques were used: Automated exposure control, adjustment of the mA and kV according to patient si ze, and iterative reconstruction. Unless otherwise specified, incidental findings do not require dedicated imaging follow-up. [id number]. Oral contrast was not given which limits evaluation of bowel and appendix. COMPARISON: .2014 and September 27, 2024 FINDINGS: Mild increase in the degree of stranding adjacent to the sigmoid colon. The amount of extraluminal ai r adjacent to the sigmoid colon has increased. Largest collection of air 1.7 cm. A fluid-filled abscess however is not noted. Small amount of fluid within the left posterior pararenal space.: 1.3 cm low-density lesion left kidney has increased in size from 2015. Hounsfield unit 21. It has a h igh likelihood of being benign. Follow-up renal ultrasound in one year No other significant change since prior CT. IMPRESSION: Perforated sigmoid diverticulitis mildly worsened since prior exam. No drainable abscess seen. Follow -up CT recommended for reevaluation
--- NOTE | 2024-10-08 15:28 | P.PN ---
Date of Service: 10/08/24 Subjective: Sitting at bedside eating breakfast this morning. We reviewed his blood work that showed an elevated WBC count. Repeat CT scan. He is hopeful to go home Review of Systems General: Unremarkable Eyes: Unremarkable ENT: Unremarkable Respiratory: Unremarkable Cardiovascular: Unremarkable Gastrointestinal: Abdominal Pain Genitourinary: Unremarkable Musculoskeletal: Unremarkable Integumentary: Unremarkable Neurological: Unremarkable Lymphatics: Unremarkable Physical Examination - Physical Exam General: Alert, In no apparent distress, Oriented x3, Cooperative HEENT: Atraumatic, PERRLA, Mucous membr. moist/pink, EOMI, Sclerae nonicteric Neck: Supple, 2+ carotid pulse no bruit, No LAD, Without JVD or thyroid abnormality Respiratory: Clear to auscultation bilaterally, Normal air movement Cardiovascular: No edema, Regular rate/rhythm, Normal S1 S2 Capillary refill: <2 Seconds Gastrointestinal: Normal bowel sounds, Tenderness Musculoskeletal: No clubbing, No swelling, No contractures, No tenderness Integumentary: No rashes, No breakdown, No erythema, No warmth Neurological: Normal gait, Normal speech, Normal strength at 5/5 x4 extr, Normal tone, Normal affect Lymphatics: No axilla or inguinal lymphadenopathy - Studies Laboratory Data (last 24 hrs) 10/05/24 10/05/24 09:30 09:30 WBC 15.70 H Hgb 13.9 Hct 41.2 Plt Count 309 Sodium 135 L Potassium 3.6 BUN 10 Creatinine 1.00 Glucose 97 Total Bilirubin 0.9 AST 14 L ALT 26 Alkaline Phosphatase 92 Lipase 23 - Studies Laboratory Data (last 24 hrs) 10/05/24 10/05/24 09:30 09:30 WBC 15.70 H Hgb 13.9 Hct 41.2 Plt Count 309 Sodium 135 L Potassium 3.6 BUN 10 Creatinine 1.00 Glucose 97 Total Bilirubin 0.9 AST 14 L ALT 26 Alkaline Phosphatase 92 Lipase 23 Assessment and Plan - Plan Acute sigmoid diverticulitis with microperforation Leukocytosis 10/08 -Leukocytosis trending up today. -Repeat CT scan showing perforated sigmoid diverticulitis mildly worsened since prior exam no drainable abscess seen. --Continue Zosyn for 1 more day and discharged with Cipro and Flagyl in the morning --Continue full liquid diet --Follow-up with colorectal surgeon immediately after discharge --Discharge early in the a.m. with CT scan on CD as well as paperwork from his visit Acute pain. --Continue current pain medication regimen. Hypertensive urgency --Improved on losartan --Continue losartan upon discharge --Hydralazine as needed for SBP greater than 160 mmHg. Tobacco use --Patient uses snuff -- Patient counseled on tobacco cessation. CKD 2. --Stable. --Will continue to monitor renal functions. Hyperlipidemia. --Not on home medication. --Further management per patient's PCP outpatient. DVT prophylaxis with Lovenox subQ Discharge Plan: Home Plan to discharge in: 48 Hours - Advance Directives Does patient have a Living Will: No Does patient have a Durable POA for Healthcare: No
--- NOTE | 2024-10-08 20:37 | PN ---
Date of Progress Note: 10/08/2024 Addendum: The patient was doing well this morning. However, when we got his blood work back, his wh ite count went up to 11.8 with a decrease in the left shift. At this point, I requested a repeat CT of the abdomen and pelvis, which was done and it shows perforated sigmoid diverticulitis with mildly worsened since prior exam. No drainable abscess seen and follow up CT is recommended. The largest c ollection there is 1.7 cm, fluid-filled abscess is not noted. There is small amount of fluid within the left posterior pararenal space. After reviewing this CAT scan and reexamining the patient, all o ptions were discussed with the patient. The patient has a colorectal surgeon who is a close family f yudith in [place] and as this patient may require some intervention it should be perhaps done by a col orectal surgeon and the patient wants to be discharged in the morning, so he can directly go over to see that colorectal surgeon in [place] and then that surgeon will have access to all of our clinical information for the patient and to make a decision what needs to be done next as far as admitting the patient to continue medical management or intervening if necessary. The patient appears to be a marilin y responsible. The patient with a clear plan what needs to be done and what the risk of all of his d isease are and what next steps should be taken. Therefore, I am in agreement that we can discharge t his patient in the morning. We will go ahead and give a prescription for Cipro and Flagyl to be take n once he is out of the hospital. He will meet with his colorectal surgeons and then it will be dete rmined whether patient will be readmitted for continued IV antibiotic therapy and medical management or whether the patient needs a surgical interventions and I discussed this in detail with the hospita list team as well. Therefore, the patient will be discharged tomorrow morning early with all the cli nical data available to him. We will repeat his CBC in the morning, so the surgeon in [place] can guzman ve access to that. The patient does not want to be transferred to another hospital directly rather go by private vehicle to the doctor's office. This patient is clinically stable for travel by car. /MODL Voice ID: [id number] Report ID: [id number]
[2024-10-09 07:16] LABS: Absolute Lymphocytes (CBC) 1.8 K/uL (0.7-4.9); Hematocrit 37.8 % (39.6-49.0); Hemoglobin 12.7 g/dL (13.6-17.9); MCH 29.7 pg (27.0-35.0); MCHC 33.7 g/dL (32.0-36.0); MCV 88.2 fL (80-100); MPV 8.2 fL (7.6-11.3); Nucleated RBC Absolute Count 0.0 (0-0); Nucleated Red Blood Cells % 0.0 % (0-0); RBC Red Blood Cell Count 4.29 M/uL (4.33-5.43); White Blood Count 10.50 thou/uL (4.3-10.9)
[2024-10-09 07:39] LABS: ALT/SGPT 35.0 U/L (16-61); AST/SGOT 20.0 U/L (15-37); Albumin 3.0 g/dL (3.4-5.0); Albumin/Globulin Ratio 0.8 (1.1-1.8); Alkaline Phosphatase 71.0 U/L (45-117); Anion Gap 7.9 mEq/L (5.0-15.0); BUN Blood Urea Nitrogen 9.0 mg/dL (7-18); Globulin 3.9 g/dL (2.3-3.5); Glucose Level 93.0 mg/dL (74-106); Potassium 3.9 mEq/L (3.5-5.1)
[2024-10-09] MEDS: POTASSIUM CL SA 10 MEQ TAB PO ONE (08:17)
--- NOTE | 2024-10-09 11:17 | PN ---
Date of Progress Note: 10/09/2024 Subjective: The patient is awake, alert. No complaint. He is tolerating clear liquids. Objective: Vital Signs: Stable. He is afebrile. Abdomen: Soft, nondistended, nontender. Positive bowel sounds. Laboratory Data: Reviewed. White count is 10.5 and left shift has improved slightly. I reviewed the CT with the radiologist. He feels that we should repeat the CT tomorrow, but with ora l contrast only starting tonight, so allowing you to go through the area of the diverticulitis to ksenia e sure that has sealed. Assessment: Acute sigmoid diverticulitis with microperforation. Recommendations: Continue IV antibiotics. Repeat CT and blood work and depending upon what the CT s hows tomorrow and his blood work, we will advance his diet slowly. Please note that I did speak to Phuc Richomnd, a colorectal surgeon in [place], yesterday and he agrees with the plan that we are performin g. Initially, the patient wanted to be transferred, but as he is still in the medical management pha se, we will keep the patient here and when he is ready for intervention either during this stay or as an outpatient, he will go back to Dr. Richmond. TRACY/CONTRERAS Voice ID: [id number] Report ID: [id number]
--- NOTE | 2024-10-09 13:33 | P.PN ---
Subjective Date of Service: 10/09/24 Chief Complaint: Abdominal pain. Subjective: Improving (Patient is improving. WBC trending down. No appreciable left lower quadrant tenderness on deep palpation.) Physical Examination - Vital Signs Temperature: 97.8 F Blood Pressure: 150/95 Pulse: 88 Respirations: 16 Pulse Ox (%): 99 - Physical Exam General: In no apparent distress, Cooperative, Obese HEENT: Atraumatic, Normocephalic Respiratory: Clear to auscultation bilaterally, Normal air movement Cardiovascular: No edema, Normal pulses, Regular rate/rhythm, Normal S1 S2 Gastrointestinal: Soft and benign, Non-distended Neurological: Normal speech Assessment And Plan - Plan Assessment Patient is a 59-year-old male who was admitted after he presented with left lower quadrant abdominal pain. He has been found to have perforated diverticulitis. Repeat CT abdomen pelvis revealed worsening findings. Patient has since responded to medical therapy. Acute sigmoid diverticulitis with microperforation Leukocytosis Leukocytosis resolved Is currently on full liquid diet and tolerating well Plan is to advance diet as tolerated Repeat CBC tomorrow to ensure no worsening Continue Zosyn while inpatient with the plan to discharge with Cipro and Flagyl Acute pain. Patient's pain is controlled He is ambulating without assistance Hypertensive urgency Blood pressure stable on losartan Tobacco use --Patient uses snuff -- Patient counseled on tobacco cessation. CKD 2. Avoid nephrotoxins. Hyperlipidemia. Outpatient follow-up with PCP DVT prophylaxis with Lovenox subQ Discharge Plan: Home Plan to discharge in: 24 Hours Physician Review: Patient Assessed, Agree with Above Assessment and Plan
[2024-10-10 07:41] LABS: Absolute Lymphocytes (CBC) 2.1 K/uL (0.7-4.9); Hematocrit 37.9 % (39.6-49.0); Hemoglobin 13.0 g/dL (13.6-17.9); MCH 29.9 pg (27.0-35.0); MCHC 34.2 g/dL (32.0-36.0); MCV 87.6 fL (80-100); MPV 8.4 fL (7.6-11.3); Nucleated RBC Absolute Count 0.0 (0-0); Nucleated Red Blood Cells % 0.0 % (0-0); RBC Red Blood Cell Count 4.33 M/uL (4.33-5.43); White Blood Count 10.50 thou/uL (4.3-10.9)
[2024-10-10 07:55] LABS: Anion Gap 10.0 mEq/L (5.0-15.0); BUN Blood Urea Nitrogen 7.0 mg/dL (7-18); Glucose Level 89.0 mg/dL (74-106); Magnesium 2.5 mg/dL (1.6-2.4); Potassium 4.0 mEq/L (3.5-5.1)
--- NOTE | 2024-10-10 09:04 | RAD REPORT ---
EXAMINATION: CT ABDOMEN AND PELVIS WITHOUT CONTRAST CLINICAL INDICATION: Acute sigmoid diverticulitis TECHNIQUE: CT abdomen and pelvis was performed, without IV contrast, as per department protocol. Axia l, sagittal and coronal reconstructions were obtained. One or more of the following dose reduction techniques were used: Automated exposure control, adjustment of the mA and kV according to the patien t size, and iterative reconstruction. Unless otherwise specified, incidental findings do not require dedicated imaging follow-up. COMPARISON: 10/08/2024 FINDINGS: The lack of intravenous contrast limits the sensitivity of this exam for evaluation of solid visceral organs, vascular structures, and retroperitoneum. LOWER CHEST: The visualized lung bases are clear. LIVER:Normal in size and contour. No focal lesion. Grossly unremarkable gallbladder. SPLEEN: Normal size. No focal lesion. PANCREAS: No mass, ductal dilation, or atilio-pancreatic fluid. ADRENALS: Normal; no mass. KIDNEYS AND URETERS: Normal size and contour. No hydronephrosis. URINARY BLADDER: Normal contour. GASTROINTESTINAL TRACT: Left lower quadrant sigmoid peridiverticular inflammation is mildly improved. No Gastrografin contrast seen external to the lumen of colon. There are a few small extraluminal air locules in the region as well as phlegmonous collection measuring up to 3.8 cm, mildly improved i n size since prior study. APPENDIX: Normal appendix. LYMPH NODES: No lymphadenopathy. MUSCULOSKELETAL: No acute or suspicious osseous abnormality. IMPRESSION: Mild improvement in left lower quadrant acute sigmoid diverticulitis and adjacent phlegmon since prio r study. No Gastrografin contrast leakage outside the colon seen. The findings were communicated with Franck Raya MD at 10/10/2024 9:02 AM by telephone.
[2024-10-10] MEDS: NIFEDIPINE XL 30 MG TABLET PO SCH (09:53)
--- NOTE | 2024-10-10 11:11 | P.PN ---
Subjective Date of Service: 10/10/24 Chief Complaint: Abdominal pain. Subjective: Improving (Patient is improving. He is ambulating and walking down the [place] without distress. Started on nifedipine today for slightly high blood pressure) Physical Examination - Vital Signs Temperature: 97.7 F Blood Pressure: 145/97 Pulse: 84 Respirations: 16 Pulse Ox (%): 100 - Physical Exam General: Alert, In no apparent distress, Cooperative HEENT: Atraumatic, Normocephalic Respiratory: Other (Speaking in full sentences) Cardiovascular: No edema Neurological: Normal speech Assessment And Plan - Plan Assessment Patient is a 59-year-old male who was admitted after he presented with left lower quadrant abdominal pain. He has been found to have perforated diverticulitis. Repeat CT abdomen pelvis revealed worsening findings. Patient has since responded to medical therapy. Acute sigmoid diverticulitis with microperforation Leukocytosis Leukocytosis resolved Currently on full liquid diet Will advance to soft low fiber diet tomorrow morning Plan is to discharge tomorrow on a 2-week course of Cipro and Flagyl. Continue Zosyn while in-house Acute pain. Patient's pain is controlled He is ambulating without assistance Hypertensive urgency Blood pressure high while on losartan Will add nifedipine as well Tobacco use Patient has been counseled CKD 2. Avoid nephrotoxins. Hyperlipidemia. Outpatient follow-up with PCP DVT prophylaxis with Lovenox subQ Discharge Plan: Home Plan to discharge in: 24 Hours Physician Review: Patient Assessed, Agree with Above Assessment and Plan
--- NOTE | 2024-10-10 13:48 | PN ---
Date of Progress Note: 10/10/2024 Subjective: Patient is awake, alert. No complaints. Vitals stable, afebrile. His blood pressure i s much better than it was when he came in, but is still slightly elevated and his medication may need to be adjusted. I did speak to the hospitalist about that. His laboratory data shows white count o f 10.5, and there is no left shift. His CT of the abdomen and pelvis reviewed with the radiologist. There is no evidence of contrast leaking from the perforation site and the inflammation has improved . His abdomen is soft, nondistended, nontender. Positive bowel sounds. Assessment: Acute sigmoid diverticulitis with microperforation improving. Recommendations: We will advance his diet today and adjust his blood pressure medicine. Continue hi m on IV antibiotics and the patient clinically is stable. We will discharge the patient tomorrow to follow up with GI and colorectal. /MODL Voice ID: [id number] Report ID: [id number]
[2024-10-10 21:42] VITALS: O2SAT 99
[2024-10-11 05:02] LABS: Absolute Lymphocytes (CBC) 1.9 K/uL (0.7-4.9); Hematocrit 38.8 % (39.6-49.0); Hemoglobin 13.4 g/dL (13.6-17.9); MCH 30.2 pg (27.0-35.0); MCHC 34.6 g/dL (32.0-36.0); MCV 87.3 fL (80-100); MPV 8.1 fL (7.6-11.3); Nucleated RBC Absolute Count 0.0 (0-0); Nucleated Red Blood Cells % 0.1 % (0-0); RBC Red Blood Cell Count 4.45 M/uL (4.33-5.43); White Blood Count 9.30 thou/uL (4.3-10.9)
[2024-10-11 05:28] LABS: Anion Gap 8.9 mEq/L (5.0-15.0); BUN Blood Urea Nitrogen 7.0 mg/dL (7-18); Glucose Level 103.0 mg/dL (74-106); Magnesium 2.3 mg/dL (1.6-2.4); Potassium 3.9 mEq/L (3.5-5.1)
[2024-10-11 08:15] VITALS: BP 153/103; TEMP 98.3
--- NOTE | 2024-10-11 10:50 | P.DS ---
Admission Date: 10/05/24 Discharge Date: 10/11/24 Disposition: ROUTINE DISCHARGE Discharge Condition: GOOD Reason for Admission: Abdominal pain. Hospital Course: Patient is a 59-year-old male with a past medical history of hy pertension and tobacco use. He was admitted for acute sigmoid diverticulitis with perforation. He received Zosyn. He stayed in the hospital after repeat CAT scan revealed worsening findings. He has eventually improved with medical management which included pain control, IV antibiotics and Zosyn. Patient's diet has been slowly escalated. His leukocytosis has resolved. He is medically cleared for discharge with a plan to follow-up with surgery for GI referral and possibly colonoscopy in 6 to 8 weeks. Vital Signs/Physical Exam: Temp Pulse Resp BP Pulse Ox 98.3 F 77 18 153/103 H 96 10/11/24 08:00 10/11/24 08:35 10/11/24 08:00 10/11/24 08:35 10/11/24 08:00 General: Alert, In no apparent distress, Cooperative HEENT: Atraumatic, Normocephalic Respiratory: Clear to auscultation bilaterally, Normal air movement Cardiovascular: No edema, Normal pulses, Regular rate/rhythm, Normal S1 S2 Gastrointestinal: Soft and benign, Non-distended Neurological: Normal speech Laboratory Data at Discharge: WBC 9.30 thou/uL (4.3-10.9) 10/11/24 04:35 Hgb 13.4 g/dL (13.6-17.9) L 10/11/24 04:35 Hct 38.8 % (39.6-49.0) L 10/11/24 04:35 Plt Count 388 thou/uL (152-406) 10/11/24 04:35 PT 15.5 SECONDS (10-13.0) H 10/06/24 06:02 INR 1.38 10/06/24 06:02 Sodium 140 mEq/L (136-145) 10/11/24 04:35 Potassium 3.9 mEq/L (3.5-5.1) 10/11/24 04:35 BUN 7 mg/dL (7-18) 10/11/24 04:35 Creatinine 0.99 mg/dL (0.70-1.30) 10/11/24 04:35 Glucose 103 mg/dL (74-106) 10/11/24 04:35 Phosphorus 3.0 mg/dL (2.5-4.9) 10/11/24 04:35 Magnesium 2.3 mg/dL (1.6-2.4) 10/11/24 04:35 Total Bilirubin 0.3 mg/dL (0.2-1.0) 10/09/24 06:59 AST 20 U/L (15-37) 10/09/24 06:59 ALT 35 U/L (16-61) 10/09/24 06:59 Alkaline Phosphatase 71 U/L (45-117) 10/09/24 06:59 Triglycerides 80 mg/dL (<150) 10/06/24 06:02 Cholesterol 185 mg/dL (<200) 10/06/24 06:02 HDL Cholesterol 46 mg/dL (40-60) 10/06/24 06:02 Cholesterol/HDL Ratio 4.02 10/06/24 06:02 Lipase 23 U/L (13-75) 10/05/24 09:30 Home Medications: Amox/Clavulanate [Augmentin 875-125 Tab] 1 each PO BID #28 tab 10/11/24 Losartan Potassium 25 mg PO DAILY #30 tab 10/11/24 Nifedipine Xl [Procardia XL*] 60 mg PO DAILY #30 tab 10/11/24 New Medications: Amox/Clavulanate [Augmentin 875-125 Tab] 1 each PO BID #28 tab Losartan Potassium 25 mg PO DAILY #30 tab Nifedipine Xl [Procardia XL*] 60 mg PO DAILY #30 tab Followup: NONE,NONE [Primary Care Provider] - Franck Raya MD [ACTIVE - CAN ADMIT] - 1 Week (Please follow-up with surgery for GI referral and possible colonoscopy)
--- NOTE | 2024-10-11 11:55 | PN ---
Date of Progress Note: 10/11/2024 Subjective: The patient is awake, alert. No complaint. Objective: Vital Signs: Stable, afebrile. Abdomen: Benign. Laboratory Data: White count is 9.3. Assessment: Acute sigmoid diverticulitis with microperforation. Recommendations: The patient is doing well, can be discharged home on oral antibiotics for 2 weeks. The patient already has an appointment with a GI doctor and knows to go to see a colorectal surgery after the colonoscopy. /CONTRERAS Voice ID: [id number] Report ID: [id number]
== END 2024-10-11 12:15 | disposition home or self-care (01) | DRG 392 ==
LOC: ER 08:39 → ERHOLD 12:19 → 4TH 12:59
PROVIDERS: ADMIT Family Medicine; ATTEND Internal Medicine
DX: K57.20 Diverticulitis of large intestine with perforation and abscess without bleeding (principal); Z79.899 Other long term (current) drug therapy; Z79.2 Long term (current) use of antibiotics; Z98.890 Other specified postprocedural states; Z72.0 Tobacco use; Z71.6 Tobacco abuse counseling; I12.9 Hypertensive chronic kidney disease with stage 1 through stage 4 chronic kidney disease, or unspecified chronic kidney disease; N18.2 Chronic kidney disease, stage 2 (mild); Z86.0100 Personal history of colon polyps, unspecified; I16.0 Hypertensive urgency
CPT/HCPCS: 36415; 74176; 74177; 80048; 80053; 80061; 81001; 83036; 83690; 83735; 84100; 84145; 84484; 85025; 85610; 87040; 96361; 96365; 96375; 99285; J0360; J0744; J1200; J1650; J2543; J3480; J7030; Q9967